=== PATIENT | female | born 1990 ===

== ENCOUNTER 2020-02-08 04:03 | Emergency (ER) | payer BC ==
[~2020-02-08] VITALS: Ht 177.8 cm; Wt 89.9 kg
[2020-02-08 04:10] VITALS: BP 120/82
--- NOTE | 2020-02-08 04:16 | PHYS DOC ---
General Adult HPI: HPI: ". I got these bug bites....they are extremely irritating.. itch to the point .. I can not sleep.. I ve had them 3 Days...".. " I can't stand the itching..." Patient is a 29 year old female who presents with above hx and complaints multiple small bug bites that are extremely itchy. Overall appearance of the bites appear to be chiggers. Patient originally from [place] has been in town approximately 3 days when she developed these bites. Patient denies any specific history of ill contacts. No history immunosuppression. Patient is normally healthy. Tetanus is up-to-date as of a year ago. Review of Systems: Review of Systems: Constitutional: Denies fever or chills Eyes: Denies change in visual acuity HENT: Denies nasal congestion or sore throat Respiratory: Denies cough or shortness of breath Cardiovascular: Denies chest pain or edema GI: Denies abdominal pain, nausea, vomiting, bloody stools or diarrhea : Denies dysuria Musculoskeletal: Denies back pain or joint pain Integument: Complaints of bug bites Neurologic: Denies headache, focal weakness or sensory changes Endocrine: Denies polyuria or polydipsia Lymphatic: Denies swollen glands Psychiatric: Denies depression or anxiety Heart Score: Risk Factors: Risk Factors: DM, Current or recent (<one month) smoker, HTN, HLP, family history of CAD, obesity. Risk Scores: Score 0 - 3: 2.5% MACE over next 6 weeks - Discharge Home Score 4 - 6: 20.3% MACE over next 6 weeks - Admit for Clinical Observation Score 7 - 10: 72.7% MACE over next 6 weeks - Early Invasive Strategies Family History: Family History: Noncontributory Current Medications: Current Meds: See nursing for home meds Allergies: Allergies: No known drug allergies Physical Exam: PE: Constitutional: Well developed, well nourished, moderate acute distress, non-toxic appearance. [] HENT: Normocephalic, atraumatic, bilateral external ears normal, oropharynx moist, no oral exudates, nose normal. [] Eyes: PERRLA, EOMI, conjunctiva normal, no discharge. [] Neck: Normal range of motion, no tenderness, supple, no stridor. [] Cardiovascular:Heart rate regular rhythm, no murmur [] Lungs & Thorax: Bilateral breath sounds clear to auscultation [] Abdomen: Bowel sounds normal, soft, no tenderness, no masses, no pulsatile masses. [] Skin: Warm, dry, no erythema, no rash. Multiple small bug bites that she has excoriated Back: No tenderness, no CVA tenderness. [] Extremities: No tenderness, no cyanosis, no clubbing, ROM intact, no edema. [] Neurologic: Alert and oriented X 3, normal motor function, normal sensory function, no focal deficits noted. [] Psychologic: Affect anxious, judgement normal, mood normal. [] EKG: EKG: [] Radiology/Procedures: Radiology/Procedures: [] Course & Med Decision Making: Course & Med Decision Making Pertinent Labs and Imaging studies reviewed. (See chart for details) Patient use warm moist salt compresses 4 times a day. Then massage area Polysporin. Take [id number] Tylenol and ibuprofen for discomfort. Take [id number] Benadryl 25 to 50 mg 4 times a day for itching. Avoid scratching bites. Follow-up primary care. Return if any concerns. Impression: 1. Bug bites- Suspect Chigger [] Dragon Disclaimer: Dragon Disclaimer: This electronic medical record was generated, in whole or in part, using a voice recognition dictation system. Departure Departure: Disposition: 01 HOME/RESIDENCE PRIOR TO ADM Condition: STABLE Referrals: PCP,NO (PCP) Justification of Admission: Justification of Admission: Justification of Admission Dx: N/A Dragon Disclaimer This chart was dictated in whole or in part using Voice Recognition software in a busy, high-work load, and often noisy Emergency Department environment. It m ay contain unintended and wholly unrecognized errors or omissions. Dragon Disclaimer This chart was dictated in whole or in part using Voice Recognition software in a busy, high-work load, and often noisy Emergency Department environment. It may contain unintended and wholly unrecognized errors or omissions. JOSE R SCHOFIELD MD Feb 08, 2020 04:16
[2020-02-08] MEDS ORDERED: BACITRACIN ZINC TOPICAL OINT PACKET. TP ONE (04:45)
== END 2020-02-08 04:56 | disposition home or self-care (01) ==
LOC: ER 04:03
DX: S30.861A Insect bite (nonvenomous) of abdominal wall, initial encounter (principal); S20.362A Insect bite (nonvenomous) of left front wall of thorax, initial encounter; S20.361A Insect bite (nonvenomous) of right front wall of thorax, initial encounter; S30.860A Insect bite (nonvenomous) of lower back and pelvis, initial encounter; S20.462A Insect bite (nonvenomous) of left back wall of thorax, initial encounter; S20.461A Insect bite (nonvenomous) of right back wall of thorax, initial encounter; W57.XXXA Bitten or stung by nonvenomous insect and other nonvenomous arthropods, initial encounter; Y93.89 Activity, other specified; Y92.89 Other specified places as the place of occurrence of the external cause; Y99.8 Other external cause status
CPT/HCPCS: 99282